=== PATIENT | female | born 2000 | race American Indian/Alaskan Native ===

== ENCOUNTER 2021-05-02 06:07 | Emergency (ER) | payer SELFPAY ==
[2021-05-02 06:16] VITALS: BP 99/57
[2021-05-02] MEDS ORDERED: SODIUM CHLORIDE 0.9% 1000 ML 1,000 ML IV ONE (06:25)
[2021-05-02] MEDS ORDERED: diphenhydrAMINE 50 MG/ML VIAL IV ONE (06:28)
[2021-05-02] MEDS ORDERED: FAMOTIDINE 20 MG/2 ML INJ IV ONE (06:28)
[2021-05-02] MEDS ORDERED: methylPREDNISolone Sod Succinate 125 MG/2 ML INJ IV ONE (06:28)
--- NOTE | 2021-05-02 07:22 | Emergency Department Report ---
ED Rash HPI - HPI Chief Complaint: Allergic Reaction Stated Complaint: ALLERGIC REACTION Time Seen by Provider: 05/02/21 06:24 Duration: Today Suspected Cause: Food Rash Symptoms: Yes Itching, Yes Facial Swelling, No Breathing Difficulties, No Choking Sensation, No Wheezing/Dyspnea, No Peeling, No Blistering, No Fever, No Lightheaded, No Malaise, No Myalgias Severity: moderate Other History: 21-year-old -[place] female presents to the emergency room stating that she has allergic reaction. She reports that she had a history of peanuts but was eating a candy bar with almonds. She states that she ate earlier in the day went to bed and woke up with itchiness and swelling of her face. Patient proceeded to the emergency room to be evaluated. She denies any shortness of breath no difficulty swallowing no nausea no vomiting no chest pain. She is taking nothing for symptoms. ED Review of Systems ROS: Stated complaint: ALLERGIC REACTION Other details as noted in HPI Comment: All other systems reviewed and negative ED Past Medical Hx - Past Medical History Previous Medical History?: No - Surgical History Past Surgical History?: Yes Additional Surgical History: ANKLE SURGERY - Medications Home Medications: Home Medications Medication Instructions Recorded Confirmed Last Taken Type Cetirizine HCl [Zyrtec 10mg tab] 10 mg PO QDAY #20 05/02/21 Unknown Rx EPINEPHrine [Epipen 2-Daniel] 0.3 mg IM ONCE PRN #2 pen 05/02/21 Unknown Rx Famotidine [Pepcid] 20 mg PO BID 7 Days #14 tablet 05/02/21 Unknown Rx predniSONE [Deltasone] 40 mg PO QDAY 5 Days #10 tab 05/02/21 Unknown Rx Rash Exam - Exam General: Vital signs noted. No distress. Alert and acting appropriately. HEENT: Yes Periorbital Edema, Yes Conjuctival Injection, No Perioral Edema, No Tongue Edema, No Uvular Edema, No Compromised Airway, No Drooling Lungs: Yes Good Air Exchange (Normal Breath Sounds), No Wheezes, No Ronchi, No Stridor, No Cough, No Labored Respirations, No Retractions, No Use of Accessory Muscles, No Other Abnormal Lung Sounds Heart: Yes Regular Skin: Yes Urticarial Rash Other: Positive: Abdomen Normal, Neurologic Normal, Musculoskeletal Normal ED Course Vital Signs 05/02/21 06:16 Temperature 97.9 F Pulse Rate 78 Respiratory 16 Rate Blood Pressure 99/57 [Left] O2 Sat by Pulse 99 Oximetry - Reevaluation(s) Reevaluation #1: 05/02/21 07:35 Patient reports he feels much better. The swelling and the redness around her eyes and face has improved. Patient is speaking in complete sentences in no acute distress and nontoxic in appearance. ED Medical Decision Making - Medical Decision Making 21-year-old -[place] female presents to the emergency room stating that she has allergic reaction. She reports that she had a history of peanuts but was eating a candy bar with almonds. She states that she ate earlier in the day went to bed and woke up with itchiness and swelling of her face. Patient proceeded to the emergency room to be evaluated. She denies any shortness of breath no difficulty swallowing no nausea no vomiting no chest pain. She is taking nothing for symptoms. Patient was given IV with normal saline, Pepcid 20 mg IV, Solu-Medrol 125 mg IV and Benadryl 50 mg IV. Critical care attestation.: If time is entered above; I have spent that time in minutes in the direct care of this critically ill patient, excluding procedure time. ED Disposition Clinical Impression: Allergic reaction Disposition: 01 HOME / SELF CARE / HOMELESS Is pt being admited?: No Does the pt Need Aspirin: No Condition: Stable Instructions: Allergies, Adult, [id number], How to Use an Auto-Injector Pen Additional Instructions: Please take medications as prescribed. Is very important you follow-up with an instant powder supervisor for allergy testing. Increase your fluid intake. Avoid all nuts peanuts and macadamia and cashews. You can take Benadryl at night and take Zyrtec during the day. Prescriptions: predniSONE [Deltasone] 40 mg PO QDAY 5 Days #10 tab EPINEPHrine [Epipen 2-Daniel] 0.3 mg IM ONCE PRN #2 pen PRN Reason: Anaphylaxis Famotidine [Pepcid] 20 mg PO BID 7 Days #14 tablet Cetirizine HCl [Zyrtec 10mg tab] 10 mg PO QDAY #20 Referrals: [facility] [Provider Group] - 3-5 Days Forms: Work/School Release Form(ED) Time of Disposition: 07:34
== END 2021-05-02 08:08 | disposition home or self-care (01) ==
LOC: ED 06:07
DX: T78.40XA Allergy, unspecified, initial encounter (principal); Z91.010 Allergy to peanuts; Z79.899 Other long term (current) drug therapy; X58.XXXA Exposure to other specified factors, initial encounter
CPT/HCPCS: 96361; 96374; 96375; 99282; J1200; J2930; J3490; J7030; Q0162